=== PATIENT | male | born 2005 | race Caucasian/White ===

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

== ENCOUNTER 2024-01-15 16:40 | Outpatient (CLI) | payer BC, SELFPAY | END 2024-01-15 23:59 | disposition home or self-care (01) | PROVIDERS: Visit Provider Nurse Practitioner | DX: Z02.1 Encounter for pre-employment examination (principal); Z11.1 Encounter for screening for respiratory tuberculosis | CPT/HCPCS: 86580 ==

== ENCOUNTER 2024-03-28 16:24 | Emergency (ER) | payer BC, SELFPAY ==
[2024-03-28 16:29] VITALS: BP 148/94; PULSE 57; RESP 18; TEMP 36.8; O2SAT 100; BMI 31.1
--- NOTE | 2024-03-28 16:33 | EXP.UTC ---
Discharge Plan Disposition Patient Disposition: Home, Self-Care Condition: Good Prescriptions Prescriptions: New triamcinolone acetonide 0.1 % cream 1 applic topical BID PRN (Reason: itching) Qty: 30 0RF diphenhydramine HCl 25 mg capsule 25 mg PO Q6HP PRN (Reason: Itching) Qty: 30 0RF methylprednisolone 4 mg Tablets,Dose Pack 4 mg PO DIRECTED 6 Days Qty: 21 0RF Rx Instructions: Take 1 pack as directed for 6 days Referrals Follow up/Referrals: Provider,Referral, MD [Primary Care Provider] - See instructions Activity Restrictions/Add. Instructions Additional Instructions/Restrictions: Try to identify and avoid contact with the offending substance (poison molly). Don't start the oral steroids until tomorrow. The diphenhydramine (benedryl) will make you drowsy, so don't drive or operate heavy machinery after taking it. Don't put the topical steroids (triamcinolone) on your face or your groin. Follow up with your regular doctor. GO TO THE ER FOR ANY WORSENING SYMPTOMS OR CONCERNS Clinical Impressions Clinical Impression: Poison molly Instructions Patient Instructions: Triamcinolone Topical, Diphenhydramine, Methylprednisolone Injection Print Language Print Language: [place] Discharge ED Provider: Bridger Marcial [facility] General Stated complaint: rash on body Time Seen by Provider: 03/28/24 16:32 History of Present Illness Provider Complaint: He states that for the past 3 days he has had an itchy rash on his bilateral arms and his face. He has been exposed to poison molly. Related Data Previous Rx's ?Medication ?Instructions ?Recorded diphenhydramine HCl 25 mg capsule 25 mg PO Q6HP PRN Itching #30 caps 03/28/24 methylprednisolone 4 mg tablets in 4 mg PO DIRECTED 6 days #21 tabs 03/28/24 a dose pack triamcinolone acetonide 0.1 % 1 applic topical BID PRN itching 03/28/24 topical cream #30 grams Allergies Allergy/AdvReac Type Severity Reaction Status Date / Time No Known Allergies Allergy Verified 08/15/19 08:05 [facility] Disclaimer: The information contained in this section may have been updated after the patient was seen, as this information can be updated by other users. Social History Smoking Status: Never smoker alcohol intake: never substance use type: denies use current occupational status: student Travel in the last 8 weeks: None household members: family housing: house current occupational exposures/hazards: No caffeine: Yes ROS Obtained: Yes All systems reviewed & no additional complaints except as documented Constitutional Constitutional: Denies chills and Denies fever(s) Eyes Eyes: Denies eye discharge ENT Ears, Nose, Mouth, and Throat: Denies dizziness, Denies otalgia and Denies sore throat Cardiovascular Cardiovascular: Denies chest pain Respiratory Respiratory: Denies shortness of breath, Denies chest congestion, Denies cough, Denies stridor and Denies wheezing Gastrointestinal Gastrointestingal: Denies nausea or vomiting Musculoskeletal Musculoskeletal: Reports system reviewed and no additional complaints, except as documented and Denies arthralgias Integumentary/Breasts Skin/Breast: Reports as per HPI and Reports rash Neurologic Neurologic: Denies dizziness and Denies paresthesias Allergic/Immunologic Allergic/Immunologic: Denies wheezing Physical Exam General General appearance: alert and in no apparent distress Head Head exam: atraumatic, normocephalic and normal inspection Eye Eye exam: Present normal appearance, PERRL and EOMI ENT ENT exam: Present normal exam, normal oropharynx, mucous membranes moist, TM's normal bilaterally and normal external ear exam Neck Neck exam: Present normal inspection, full ROM and trachea midline; Absent meningismus or lymphadenopathy Chest Chest inspection: Present normal inspection and symmetric chest wall rise; Absent tenderness Respiratory Respiratory exam: Present normal lung sounds bilaterally; Absent respiratory distress Cardiovascular Cardiovascular exam: Present regular rate and normal rhythm; Absent JVD Abdominal Exam Abdominal exam: Present soft and normal bowel sounds; Absent distention, tenderness or guarding Extremities Exam Extremities exam: Present normal inspection, full ROM and normal capillary refill; Absent calf tenderness Back Exam Back exam: Present normal inspection; Absent tenderness Neurological Exam Neurological exam: Present alert and oriented X3 Psychiatric Psychiatric exam: Present normal affect and normal mood Skin Skin exam: Present rash Lymphatic Lymphatic Findings: no adenopathy Medical Decision Making Medical Records Medical records reviewed: No I reviewed the patient's medical records. Uziel Inquiry Pt receiving controlled substance: No
[2024-03-28] MEDS: METHYLPREDNISOLONE SOD SUCC 125MG VIAL 125 MG IM (16:53)
[2024-03-28 17:08] VITALS: BP 148/94; PULSE 57; RESP 18; TEMP 36.8; O2SAT 100
== END 2024-03-28 17:09 | disposition home or self-care (01) ==
PROVIDERS: Emergency Provider Nurse Practitioner Family
DX: L23.7 Allergic contact dermatitis due to plants, except food (principal); W60.XXXA Contact with nonvenomous plant thorns and spines and sharp leaves, initial encounter
CPT/HCPCS: 96372; 99204; 99212; G0463; J2919

== ENCOUNTER 2024-05-02 16:07 | Outpatient (CLI) | payer BC, SELFPAY ==
--- NOTE | 2024-05-02 16:10 | XR_ITS ---
FINAL REPORT CLINICAL HISTORY: Ankle Pain FINDINGS: LEFT ANKLE Three views demonstrate no acute fracture or dislocation. There are postoperative changes of the medial distal tibia. Mild degenerative changes are seen of the tibiotalar joint. The visualized joint spaces are normally aligned. There is medial soft tissue swelling. IMPRESSION: Postoperative and degenerative changes without acute bony abnormality. Reviewed, Interpreted and Dictated by Shaq Dasilva III, MD Transcribed by Khushi Boudreaux Authenticated and [facility]
--- NOTE | 2024-05-02 16:10 | XR_ITS ---
FINAL REPORT CLINICAL HISTORY: Foot Pain FINDINGS: LEFT FOOT Three views of the left foot demonstrate no acute fracture or dislocation. There are postoperative changes of the medial malleolus. The visualized joint spaces are normally aligned. The soft tissues are unremarkable. IMPRESSION: No acute bony abnormality. Reviewed, Interpreted and Dictated by Shaq Dasilva III, MD Transcribed by Khushi Boudreaux Authenticated and . [facility]
== END 2024-05-02 23:59 | disposition home or self-care (01) ==
LOC: RAD 16:08
PROVIDERS: Visit Provider Podiatrist
DX: M79.672 Pain in left foot (principal); M25.572 Pain in left ankle and joints of left foot
CPT/HCPCS: 73610; 73630

== ENCOUNTER 2024-07-29 15:09 | Outpatient (CLI) | payer BC, SELFPAY ==
--- NOTE | 2024-07-29 15:23 | ECG_ITS ---
APPROVED REPORT Exam: Resting ECG HR:85 bpm ECG Measurements Heart Rate 85 AXES IN 96 P 71 QRSd 98 QRS 59 QT 335 T -30 QTc 377 Conclusion SINUS RHYTHM WITH SINUS ARRHYTHMIA WITH SHORT IN INTERVAL NONSPECIFIC ST & T-WAVE ABNORMALITY ABNORMAL ECG UNCONFIRMED REPORT Electronically signed by : Andre Henriquez MD 07/30/2024 08:45:05
[2024-07-29 15:27] LABS: Basophils # 0.1 K/mm3 (0-0.2); Basophils % 1.4 % (0.1-2.0); Eosinophils # 0.1 K/mm3 (0.0-0.4); Eosinophils % 1.3 % (0.1-12.0); Hematocrit 48.8 % (42.0-52.0); Lymphocytes # 1.7 K/mm3 (0.7-4.5); Lymphocytes % 23.6 % (10-50); Mean Corpuscular HGB Conc 34.8 g/dL (31.8-35.4); Mean Corpuscular Volume 92.1 fl (80-94); Monocytes # 0.5 K/mm3 (0.1-1.0); Monocytes % 7.6 % (1.7-9.3); Neutrophils # 4.7 K/mm3 (1.8-7.8); Platelet Count 293 K/mm3 (142-424); Red Cell Distribution Width 12.9 % (11.5-17.5); White Blood Count 7.1 K/mm3 (4.5-13.0)
[2024-07-29 15:40] LABS: Albumin Level 4.9 g/dl (3.5-5.0); Chloride 104 mmol/L (98-107); Sodium 141 mmol/L (136-145)
[2024-07-29 15:41] LABS: Potassium 4.4 mmoL/L (3.5-5.1)
[2024-07-29 15:43] LABS: Alanine Aminotransferase 43 U/L (12-78); Albumin/Globulin Ratio 1.5 (1.1-1.8); Anion Gap 13.4 mEq/L (5-15); Aspartate Amino Transferase 40 U/L (17-59); Blood Urea Nitrogen 19 mg/dl (9-20); Carbon Dioxide 28 mmol/L (22.0-30.0); Estimated Glomerular Filt Rate 85 ml/min (>60); GFR (African American) 103 ML/MIN (>60); Globulin 3.3 g/dL (1.3-3.2); Total Protein,Serum 8.2 g/dl (6.3-8.2)
[2024-07-29 15:44] LABS: Alkaline Phosphatase 64 U/L (38-126); Bilirubin,Total 0.5 mg/dl (0.2-1.3); Calcium 9.7 mg/dl (8.4-10.2); Glucose 97 mg/dl (74-100)
[2024-07-29 15:51] LABS: C-Reactive Protein 1.1 mg/L (0-4)
[2024-07-29 16:10] LABS: Erythrocyte Sedimentation Rate 1 mm/hr (0-15)
== END 2024-07-29 23:59 | disposition home or self-care (01) ==
LOC: LAB 15:11
PROVIDERS: Visit Provider Podiatrist
DX: Z01.818 Encounter for other preprocedural examination (principal)
CPT/HCPCS: 36415; 80053; 85025; 85651; 86140; 93005

== ENCOUNTER 2024-08-08 13:57 | Outpatient (CLI) | payer BC, SELFPAY ==
--- NOTE | 2024-08-08 14:00 | CA_ITS ---
APPROVED REPORT EXAM: Comprehensive 2D, Doppler, and color-flow Echocardiogram Field Secretary: Silvia Jimenez RVT Ht: 6 ft 0 in Wt: 243lbs BSA: 2.31 BP: 164/96 mmHg Indications: PRE-OP,ABN EKG 2D Dimensions Left Atrium 4.18 cm M: 3.0 - 4.0 LA Volume 49.70 mL RVID Base (AP4) 3.05 cm (M/F) 2.5-4.1 LA Volume Index 21.52 mL/m2 (M/F) 16-34 LVOT 2.47 cm (M/F) 1.5-2.5 EF AP4 50.40 % GL Strain -18.3 % M-Mode Dimensions RVDd 3.26 cm (0.9-2.6) LVDd 5.39 cm (3.5-5.7) Ao Diam 2.99 cm (2.0-3.7) LVDs 2.62 cm (3.5-5.7) IVSd 0.60 cm (0.6-1.1) PWd 0.60 cm (0.6-1.1) EF (Teich) 82.20% FS 51.40% EDV (Teich) 140.70 mL TAPSE 2.02 (<1.7) ESV (Teich) 25.10 mL LV Diastology E Decel Time 192 (160-240 msec) E/A Ratio 2.2 MED E' 11.3 (>= 7 cm/sec) E'/MED E' Ratio 6.61 (<= 14) LAT E' 17.5 (>= 10 cm/sec) E/LAT E' Ratio 4.27 (<= 14) Aortic Valve LVOT Max 97.0 (70-110 cm/s) TELMA Index 1.57 cm2/m2 LVOT VTI 18.29 cm AoV Peak Joel. 127.0 (50-130 cm/s) AO Peak GR. 5.50 mmHg AO Mean GR. 4.00 (<5 mmHg) AO VTI 24.2 (18-25 cm) TELMA (VTI) 3.63 (2.5-4.5 cm2) Mitral Valve MV E Max Joel. 75.0 (40-130 cm/s) MV A Velocity 34.0 (40-130 cm/s) E/A Ratio 2.19 MV Decel. Time 192 (160-240 ms) Left Ventricle The left ventricle is normal size. The left ventricular systolic function is normal. The left ventricular ejection fraction is within the normal range. There is normal left ventricular wall thickness. There is normal LV segmental wall motion. The left ventricular diastolic function is normal. LVEF is 55%. Right Ventricle The right ventricle is normal size. The right ventricular systolic function is normal. Atria The left atrium size is normal. The right atrium size is normal. There is no Doppler evidence of interatrial shunt. Aortic Valve The aortic valve opens well. There is no aortic valvular stenosis. No aortic regurgitation is present. Mitral Valve The mitral valve is normal in structure. No evidence of mitral valve stenosis. There is no mitral valve regurgitation noted. Tricuspid Valve Tricuspid valve is grossly normal in structure and function. Trace tricuspid regurgitation. There is insufficient TR jet to estimate RVSP. Pulmonic Valve The pulmonary valve is normal in structure. Mild pulmonic regurgitation. Great Vessels The aortic root is normal in size. The ascending aorta is normal in size. IVC is normal in size and collapses >50% with inspiration. Pericardium There is no pericardial effusion. Other Information Study Quality: Adequate Conclusion Normal biventricular systolic function. Mild PI. Electronically signed by : Kristal Laguerre MD 08/08/2024 15:29:46
== END 2024-08-08 23:59 | disposition home or self-care (01) ==
LOC: RT 13:58
PROVIDERS: Visit Provider Internal Medicine
DX: Z01.818 Encounter for other preprocedural examination (principal); I37.1 Nonrheumatic pulmonary valve insufficiency; R94.31 Abnormal electrocardiogram [ECG] [EKG]
CPT/HCPCS: 93306

== ENCOUNTER 2024-08-14 10:03 | Day surgery (SDC) | payer BC, SELFPAY ==
[2024-08-13 09:40] VITALS: BMI 31.8
[2024-08-14] VITALS (10 sets, daily range): BP systolic 116–154; BP diastolic 64–88; PULSE 76–107; RESP 16–20; TEMP 36.2–43; O2SAT 94–100
--- NOTE | 2024-08-14 11:47 | EXP.ANES.CKL ---
[facility] Disclaimer: The information contained in this section may have been updated after the patient was seen, as this information can be updated by other users. Medical History Pre-op evaluation Abnormal ECG Surgical History History of ankle surgery History of placement of ear tubes Family History (Updated 08/14/24 @ 10:15 by Mahi Barth RN) Other Family history of hypertension No significant family history Social History Smoking Status: Never smoker alcohol intake: never substance use type: denies use current occupational status: employed Travel in the last 8 weeks: None household members: family housing: house current occupational exposures/hazards: No caffeine: Yes Have you lived/traveled outside [place] in past 30 days?: No Contact w/someone who lives/traveled outside [place] past 30 days?: No Exposure to someone with infectious disease in past 14 days?: No Do you have a fever (greater than 100.4 F or 38 C)?: No Have you tested positive for COVID-19: No Exposed to someone with COVID-19 in past 14 days?: No Do you have a sore throat?: No Do you have a cough?: No Do you have any weakness?: No Do you have any diarrhea?: No Are you experiencing any unusual bleeding?: No Do you have any muscle aches/pain?: No Do you have any abdominal pain?: No Are you experiencing loss of taste or smell?: No [facility] Anesthesia Checklist Patient Identification Patient Identification: Arm Band Structural Data Admitted From: Home Planned Operative Procedure/s: Left Ankle Hardware Removal, Tenosynovectomy Consent for Planned Operative Procedure(s) Verified: Yes Verified Documents: Surgical Consent and History and Physical NPO Status Verified Time NPO: 00:00 Additional verifications Anesthesia Reactions: No Hx Blood Transfusions: No Blood Transfusion Reaction: No Airway Assessment Mallampati Score:: Class II C-Spine Mobility Assessed: Yes TMJ Mobility Assessed: Yes Dentition: Good Dentition Neurological Assessment Level of Consciousness: Awake, Alert and Appropriate Anesthesia Plan Anesthesia Risk discussed: Yes Anesthesia Plan: Verified ASA Class: II Anesthesia Type: General w/block (Left Popliteal/Adductor Canal Nerve Block. Risks/benefits explained. Pt verbalized understanding)
[2024-08-14] MEDS: CEFAZOLIN SODIUM 2 GM in 0.9 % SODIUM CHLORIDE 100 ML IV (12:20)
--- NOTE | 2024-08-14 13:01 | XR_ITS ---
FINAL REPORT CLINICAL HISTORY: HARDWARE REMOVAL IN OR 0.1 min 0.30 mGy COMPARISON: None FINDINGS: FLUOROSCOPY LESS THAN 1 HOUR HISTORY: Hardware removal FINDINGS: Fluoroscopic guidance was provided for hardware removal. A single spot film was obtained. 0.1 minutes of fluoroscopy time were used, with a total dosage of 0.3 mGy. IMPRESSION: As above. Reviewed, Interpreted and Dictated by Judy Rodriguez MD Transcribed by Lynette Fowler Authenticated and [facility]
--- NOTE | 2024-08-14 13:02 | SUR.OPER ---
1230- Verbal orders given by Dr Ellis to update the family that surgery has started and everything is going well. Verbal orders repeated and correct. Family called at this time and updated. Spoke with patients dad.
--- NOTE | 2024-08-14 13:45 | EXP.OP.NOTE ---
Date of procedure: 08/14/24 Pre-op Diagnosis:: Left ankle retained orthopedic hardware Painful hardware PT tenosynovitis Ankle synovitis Post-op Diagnosis:: Same Procedure performed:: Left ankle arthroscopy with extensive debridement PT tenosynovectomy ankle hardware removal Surgeon:: Mora Ellis DPM GENERATION TECHNICIAN:: Bridger Robert Anesthesia: GETA and regional (Left popliteal nerve block) Estimated blood loss (mL): 30 Clinical Note:: Patient is a 18-year-old male who presents with left ankle pain and impingement type symptoms. Patient had a left medial malleolus fracture with ORIF 05/03/2019. He went several years without any issues then last year began to have swelling and throbbing pain worse with activity. X-rays reviewed and discussed with the patient, show no acute bony abnormality. Mild degenerative changes noted. Conservative treatment discussed and exhausted. We discussed surgery for left ankle hardware removal and ankle arthroscopy with debridement. All risks and benefits were discussed including but not limited to: damage to blood vessels and nerves, bleeding, infection, wound complications, delayed, mal or non-union of bone, post-traumatic arthritis, progression of arthritis, need for further surgery, need for advanced imaging postop, implant failure, need for removal of implant, prolonged or permanent swelling of the extremity, prolonged or permanent pain or deformity, CRPS/RSD, DVT/PE, and anesthetic complications including . No guarantees were given. All questions fully answered. The patient verbalized understanding and agreed to proceed with surgery. Written consent was obtained. Operative findings:: History of medial malleolus fracture ORIF with retained hardware. Hardware was removed without complication. Bony overgrowth noted to the plate. No deep signs of infection noted. Synovitis noted to the ankle which was debrided with rongeur. Posterior tibial tendon was intact with no obvious tear or rupture. There was tenosynovitis noted which was debrided. Operative note:: On this date and time patient was deemed an appropriate surgical candidate. With informed consent signed, the patient was taken to the operating theater after regional nerve block. The patient was positioned supine. General anesthesia was induced. Tourniquet was applied to the left mid-calf. IV Ancef given. Left Ankle Hardware Removal: The left lower extremity was prepped and drapped in normal sterile fashion. Attention was directed to the left distal fibula, where a dorsal linear incision was mapped out over the previous incision site. Full-thickness dissection with care to maintain surgical hemostasis. Bone was overlying the screws and plate. The hardware was visualized. All screws in the anatomic locking plate were removed without complication. A piece of the left tibia was sent as bone pathology. Bone was hard, color and texture was within normal limits. Left Ankle Arthroscopy with debridement/synovectomy: The soft tissue appeared healthy with no necrotic tissue noted. Significant scarring and fibrotic tissue noted to the medial and anterior ankle. The synovitic tissue was sharply debrided. The ankle joint was visualized and synovitic fluid was removed. There was a scuff noted anterior medial talus. No obvious talus osteochondral defect noted. The wound was flushed with copious amounts of normal saline with gentamicin irrigation. Left posterior tibial tenosynovectomy: 15 blade forceps used to debride synovitic tissue from the PT tendon. All wounds flushed with gentamicin irrigation. Vicryl used to close deep and subcutaneous tissue. Skin byron used to reapproximate skin. The tourniquet was deflated and immediate hyperemic response was noted to the digit. The wounds were cleansed. Xeroform and a dry sterile dressing was then applied to the left foot. The patient was awoken from anesthesia and transferred to recovery with vital signs stable and neurovascular status intact. Patient appeared to tolerate procedure and anesthesia well without complication. Materials: [employer] amniotic graft x1 (4x6cm) Discharge/Plan: D/C home today when ready and vital signs stable. Patient is to maintain dressing clean dry and intact. Ice to the top of the ankle and elevate on two pillows. Non weight bearing to the left lower extremity with DME assistance. Rx for pain, Motrin, Zofran. Obtain post op films, left ankle, 3 views. Follow up in one week. Tourniquet time (min): 20 Condition: stable Disposition: same day Specimens:: Left ankle hardware culture Left tibia bone path Complications:: None
--- NOTE | 2024-08-14 14:00 | XR_ITS ---
FINAL REPORT CLINICAL HISTORY: s/p HWR (hardware removal) COMPARISON: 05/02/2024 FINDINGS: LEFT ANKLE Three views demonstrate hardware defect seen along the medial distal tibia compatible with recent hardware removal. There is widening of the medial ankle mortise. There is no acute fracture or dislocation. IMPRESSION: Changes from hardware removal. No acute bony abnormality. Reviewed, Interpreted and Dictated by Judy Rodriguez MD Transcribed by Shasta Soriano Authenticated and . [facility]
--- NOTE | 2024-08-14 14:02 | P.PNANES_ITS ---
[facility] Anesthesia Record Part I Anesthesia Record I Intake, IV Amount: 900 Hydration: Adequate Estimated blood loss (mL): 15 Urine output (mL): 0 Blood Products used (#): none Blood Pressure: 139/72 SaO2: 96 Pulse Rate: 88 Airway Patency: Patent Respiratory Rate: 18 Temperature: 97.9 F Patient is:: Drowsy and Stable Stable to PACU at:: 13:51
--- NOTE | 2024-08-15 11:49 | P.PNANES_ITS ---
[facility] Anesthesia Record Part II Anesthesia Record Part II Discharge Time: 14:21 Destination: Surgical Day Care (OP Surgery) PACU nurse assessment reviewed?: Yes Patient Condition:: Good Anesthesia Complications:: None Swallowing reflex intact?: Yes Airway Patency: Patent Cyanosis?: No Blood Pressure: 127/64 SaO2: 97 Respiratory Rate: 16 Pulse Rate: 103 Temperature: 97.2 F Mental Status: Alert & Oriented Pain level:: 0 Nausea and/or vomitting:: None Intake, IV Amount: 0 Hydration: Adequate
[2024-08-15 11:50] VITALS: BP 127/64; PULSE 103; RESP 16; TEMP 36.2; O2SAT 97
== END 2024-08-14 14:50 | disposition home or self-care (01) ==
PROVIDERS: Visit Provider Podiatrist
PROC: (CPT 20680; principal; 2024-08-14 11:30)
DX: T84.84XA Pain due to internal orthopedic prosthetic devices, implants and grafts, initial encounter (principal); M65.872 Other synovitis and tenosynovitis, left ankle and foot; M76.822 Posterior tibial tendinitis, left leg; Y83.1 Surgical operation with implant of artificial internal device as the cause of abnormal reaction of the patient, or of later complication, without mention of misadventure at the time of the procedure
CPT/HCPCS: 20680; 27626; 29898; 73600; 73610; 87077; 87186; 88304; 96374; J0690; J1100; J2250; J2405; J3010